=== PATIENT | female | born 1995 | race Caucasian/White ===

== ENCOUNTER 2017-01-12 11:45 | Emergency (ER) | payer SELFPAY ==
[2017-01-12 13:15] VITALS: BP 111/66
--- NOTE | 2017-01-12 14:06 | UC ---
Head Injury HPI - HPI Summary HPI Summary: 21 yo female had one mixed drink about 9 PM yesterday went to walk down stairs a stair was missing and she fell down about 10 stairs no LOC no n/v some dizziness 4/10 SUNG photophobia has had 3 concussions in past - History Of Current Complaint Chief Complaint: UCHeadInjury Stated Complaint: POSSIBLE CONCUSSION Time Seen by Provider: 01/12/17 13:55 Hx Obtained From: Patient Hx Last Menstrual Period: 01/09/17 Onset/Duration: Sudden Onset Severity Currently: Mild Severity Initially: Moderate Pain Intensity: 4 Pain Scale Used: 0-10 Numeric Character: Dull, Throbbing Aggravating Factor(s): Nothing Alleviating Factor(s): Other - OTC meds Associated Signs And Symptoms: Positive: Other - dizziness and photo/ phonophobia. Negative: LOC (Time In Secs./Mins/Hrs), LOC Duration Unknown, Confusion, Memory Loss, Seizure, Epistaxis, Dental Malocclusion, Neck Pain, Nausea, Vomiting - Allergies/Home Medications Allergies/Adverse Reactions: Allergies Allergy/AdvReac Type Severity Reaction Status Date / Time Bee Venom Allergy Swelling Verified 01/12/17 13:10 Sulfa Antibiotics Allergy Hives Verified 01/12/17 13:10 Home Medications: Home Medications Cholecalciferol TAB* [Vitamin D TAB*] 400 unit PO DAILY 01/12/17 [History Confirmed 01/12/17] Epinephrine [Epipen 2-Vin] 0.3 mg IM SEE INSTRUCTIONS PRN 01/12/17 [History Confirmed 01/12/17] FLUoxetine CAP* [PROzac CAP*] 40 mg PO DAILY 01/12/17 [History Confirmed ] Ferrous Sulfate [Iron (Ferrous Sulfate)] 50 mg PO DAILY 01/12/17 [History Confirmed 01/12/17] PMH/Surg Hx/FS Hx/Imm Hx Previously Healthy: Yes - Surgical History Surgical History: Yes Surgery Procedure, Year, and Place: Tonsillectomy, ~2001; Left Ankle Ligament/ Tendon Repair, 2015; Benign Skull Tumor, 2014 - Family History Known Family History: Negative: Cardiac Disease, Hypertension, Diabetes - Social History Alcohol Use: Weekly Substance Use Type: None Smoking Status (MU): Never Smoked Tobacco - Immunization History Most Recent Influenza Vaccination: Not the Season Review of Systems Eyes: Photophobia Neurological: Headache, Other - dizziness Is Patient Immunocompromised?: No All Other Systems Reviewed And Are Negative: Yes Physical Exam Triage Information Reviewed: Yes Appearance: Well-Appearing, No Pain Distress, Well-Nourished Vital Signs: Initial Vital Signs Temp 98.3 F 01/12/17 13:07 Pulse 70 01/12/17 13:07 Resp 16 01/12/17 13:07 BP 111/66 01/12/17 13:07 Pulse Ox 100 01/12/17 13:07 Eyes: Positive: Conjunctiva Clear, Other: - eomi/perrl, fundi benign ENT: Positive: Hearing grossly normal, TMs normal, Uvula midline. Negative: Nasal congestion, Nasal drainage, TM bulging, TM dull, TM red, Tonsillar swelling, Tonsillar exudate, Trismus, Muffled voice, Hoarse voice, Dental tenderness, Sinus tenderness Dental Exam: Normal Neck: Positive: Supple, Nontender, No Lymphadenopathy Respiratory: Positive: Lungs clear, Normal breath sounds, No respiratory distress, No accessory muscle use Cardiovascular: Positive: RRR, No Murmur Musculoskeletal: Positive: ROM Intact, No Edema Neurological: Positive: Alert, Muscle Tone Normal, Other: - GCS 15/15, cn 2-12 intact, normal gait, normal memory, (-) rhomberg Skin Exam: Normal Head Injury Course/Dx - Differential Dx/Diagnosis Provider Diagnoses: concussion Discharge - Discharge Plan Condition: Stable Disposition: HOME Patient Education Materials: Concussion (ED) Referrals: Non Staff,Doctor [Primary Care Provider] - 2 Weeks Additional Instructions: rest ....both physical and mental recheck here or ER for new or worsening symptoms see your MD in a couple of weeks for recheck tylenol or advil if needed for headache
== END 2017-01-12 14:10 | disposition home or self-care (01) ==
LOC: UCCORT 11:45
DX: S06.0X0A Concussion without loss of consciousness, initial encounter (principal); W10.9XXA Fall (on) (from) unspecified stairs and steps, initial encounter; Y93.9 Activity, unspecified; Y92.9 Unspecified place or not applicable; Z88.2 Allergy status to sulfonamides; Z91.030 Bee allergy status
CPT/HCPCS: 99201; G0463

== ENCOUNTER 2017-12-09 09:38 | Emergency (ER) | payer BC ==
[2017-12-09 09:53] VITALS: BP 113/69
--- NOTE | 2017-12-09 09:59 | UC ---
Lower Extremity/Ankle HPI - HPI Summary HPI Summary: Pt c/o left ankle/lateral malleolus pain and swelling. Pt reports that she had been drinking etoh last night misplaced her left foot and "rolled" her left ankle "inward" . Pt reports that she has fractured left ankle three times previous and had "reconstructive surgery" due to multiple fractures. Pt states is able bear weight - History of Current Complaint Chief Complaint: UCLowerExtremity Stated Complaint: LEFT ANKLE INJURY Time Seen by Provider: 12/09/17 09:53 Hx Obtained From: Patient Hx Last Menstrual Period: 12/07/17 ?: No Onset/Duration: Gradual Onset, Still Present Severity Initially: Mild Severity Currently: Moderate Pain Intensity: 4 Aggravating Factor(s): Standing, Ambulation Alleviating Factor(s): Rest, Elevation Able to Bear Weight: Yes - Risk Factors Gout Risk Factors: Negative DVT Risk Factors: Negative Septic Arthritis Risk Factor: Negative - Allergies/Home Medications Allergies/Adverse Reactions: Allergies Allergy/AdvReac Type Severity Reaction Status Date / Time bee venom protein (honey bee) Allergy Swelling Verified 12/09/17 09:50 Sulfa (Sulfonamide Allergy Hives Verified 12/09/17 09:50 Antibiotics) PMH/Surg Hx/FS Hx/Imm Hx Previously Healthy: Yes - Surgical History Surgical History: Yes Surgery Procedure, Year, and Place: Tonsillectomy, ~2001; Left Ankle Ligament/ Tendon Repair, 2015; Benign Skull Tumor, 2014 - Family History Known Family History: Negative: Cardiac Disease, Hypertension, Diabetes - Social History Occupation: Student - [employer] Lives: Dormitory/Roommates Alcohol Use: Weekly Substance Use Type: None Smoking Status (MU): Never Smoked Tobacco Have You Smoked in the Last Year: No - Immunization History Most Recent Influenza Vaccination: Not the Season Review of Systems Constitutional: Negative Skin: Bruising Eyes: Negative ENT: Negative Respiratory: Negative Cardiovascular: Negative Gastrointestinal: Negative Genitourinary: Negative Motor: Decreased ROM Neurovascular: Negative Musculoskeletal: Arthralgia, Decreased ROM, Edema, Myalgia Neurological: Negative Psychological: Negative Is Patient Immunocompromised?: No All Other Systems Reviewed And Are Negative: Yes Physical Exam Triage Information Reviewed: Yes Appearance: Well-Appearing Vital Signs: Initial Vital Signs Temp 97.8 F 12/09/17 09:48 Pulse 68 12/09/17 09:48 Resp 16 12/09/17 09:48 BP 113/69 12/09/17 09:48 Pulse Ox 100 12/09/17 09:48 Vital Signs Reviewed: Yes Eye Exam: Normal ENT Exam: Normal Dental Exam: Normal Neck exam: Normal Respiratory Exam: Normal Cardiovascular Exam: Normal Musculoskeletal: Positive: Edema @ - left lateral malleolus Neurological Exam: Normal Psychological Exam: Normal Skin Exam: Other - left foot, generalized bruising, dorsal aspect and posterior heel. Diagnostics - Laboratory Diagnostic Studies Completed/Ordered: IMPRESSION: SOFT TISSUE SWELLING, NO FRACTURE IS SEEN. - Radiology No standard instances Radiology Interpretation Completed By: Radiologist - IMPRESSION: SOFT TISSUE SWELLING, NO FRACTURE IS SEEN. Lower Extremity Course/Dx - Differential Dx/Diagnosis Differential Diagnosis/HQI/PQRI: Fracture (Closed), Sprain, Strain Provider Diagnoses: left ankle sprain Discharge - Sign-Out/Discharge Documenting (check all that apply): Patient Departure All imaging exams completed and their final reports reviewed: Yes - Discharge Plan Condition: Stable Disposition: HOME Patient Education Materials: Ankle Sprain (ED), R.I.C.E. Treatment (ED) Referrals: [facility] [Outside] - If Needed Ayran Baltazar MD [Medical Doctor] - If Needed No Primary Care Phys,NOPCP [Primary Care Provider] - - Billing Disposition and Condition Condition: STABLE Disposition: Home
--- NOTE | 2017-12-09 10:23 | RAD ---
INDICATION: Left ankle injury. TECHNIQUE: 3 views of the left ankle were obtained. FINDINGS: Soft tissue swelling is noted along the anterolateral aspect of the ankle. No fracture is seen. Joint spaces appear maintained. IMPRESSION: SOFT TISSUE SWELLING, NO FRACTURE IS SEEN.
== END 2017-12-09 10:37 | disposition home or self-care (01) ==
LOC: UCCORT 09:38
DX: S93.402A Sprain of unspecified ligament of left ankle, initial encounter (principal); Z88.2 Allergy status to sulfonamides; Z91.030 Bee allergy status; X50.9XXA Other and unspecified overexertion or strenuous movements or postures, initial encounter; Y92.9 Unspecified place or not applicable
CPT/HCPCS: 99212; G0463